=== PATIENT | male | born 1950 | race Caucasian/White ===

== ENCOUNTER → 2017-03-18 | Outpatient (CLI) | payer OTHER ==
--- NOTE | 2017-03-18 12:02 | PCVCIMAG ---
EXAM: BILATERAL CAROTID DUPLEX INDICATION: Carotid Occlusive Disease. FINDINGS: Doppler Measurements (centimeters per second): RIGHT: Peak CCA-89, Peak ECA-89, Diastolic ICA-26, Peak ICA-69, ICA/CCA Ratio-0.8. LEFT: Peak CCA-81, Peak ECA-74, Diastolic ICA-29, Peak ICA-66, ICA/CCA Ratio-0.8. RIGHT CAROTID: The carotid bulb has mild plaque. The proximal internal carotid artery shows <40% stenosis. The common carotid artery shows no significant stenosis. The external carotid artery shows no significant stenosis. LEFT CAROTID: The carotid bulb has mild plaque. The proximal internal carotid artery shows <40% stenosis. The common carotid artery shows no significant stenosis. The external carotid artery shows no significant stenosis. Antegrade flow in both vertebral arteries. IMPRESSION: <40% stenosis of the right internal carotid artery with mild plaque. <40% stenosis of the left internal carotid artery with mild plaque. LOC:[place] [id number]
== END | disposition home or self-care (01) ==
LOC: PCVCIMAG 11:10
PROVIDERS: ATTEND Internal Medicine Cardiovascular Disease
DX: I12.9 Hypertensive chronic kidney disease with stage 1 through stage 4 chronic kidney disease, or unspecified chronic kidney disease (principal); N18.9 Chronic kidney disease, unspecified; I65.23 Occlusion and stenosis of bilateral carotid arteries; R55 Syncope and collapse; E78.00 Pure hypercholesterolemia, unspecified; F41.9 Anxiety disorder, unspecified; Z82.49 Family history of ischemic heart disease and other diseases of the circulatory system; Z87.891 Personal history of nicotine dependence; Z79.899 Other long term (current) drug therapy
CPT/HCPCS: 80061; 93005; 93880; G0463

== ENCOUNTER → 2018-03-22 | Outpatient (CLI) | payer OTHER ==
--- NOTE | 2018-03-22 15:01 | PCVCIMAG ---
APPROVED REPORT Study performed: 03/22/2018 10:13:28 Exam: Stress Echocardiogram Indication: pre-op cardiac evaluation, syncope, HTN Patient Location: Echo lab Stress Nurse: Nicolasa Hobbs RN Status: routine Ht: 5 ft 11 in HR: 106 bpm BP: 146/96 mmHg Rhythm: Tachycardia Procedure The patient underwent an Exercise Stress Test using the Golden Protocol. Blood pressure, heart rate, and EKG were monitored. An Echocardiogram was performed by facility environmental technician in four stages in quad fashion. At peak stress, four selected images were obtained and placed side by side with resting images for comparison. Stress Test Details Stress Test: Exercise stress testing was performed using a Golden protocol. HR Resting HR: 106 bpmMax Heart Rate (APMHR): 155 bpm Max HR Achieved: 151 bpmTarget HR (85% APMHR): 131 bpm % of APMHR: 97 Recovery HR: 117 bpm HR response to stress: Normal HR response to stress BP Resting BP: 146/96 mmHg Max BP: 184/90 mmHg Recovery BP: 144/82 mmHg ECG Resting ECG: Sinus Rhythm, nonspecific ST-T abnormalities, LVH Stress ECG: Sinus Rhythm, nonspecific ST-T abnormalities ST Change: Nondiagnostic resting ST abnormalities Arrhythmia: occasional PVCs Recovery ECG: Sinus Rhythm, nonspecific ST-T abnormalities Recovery ST Change: Nondiagnostic resting ST abnormalities Recovery Arrhythmia: PVCs Clinical Reason for Termination: Maximal effort Stress Symptoms: Dyspnea Exercise duration: 9 min sec Highest Stage Achieved: Stage 3: 3.4 mph at 14% grade. Exercise capacity: 10.1 METs Overall Exercise Capacity for Age: Good Scale: Active Angina Score: None Pre-Stress Echo The resting Echocardiogram showed normal left ventricular contractility with an estimated Ejection Fraction of about >55%. Normal wall motion in all segments on baseline images. Post-Stress Echo The stress Echocardiogram showed normal left ventricular contractility with an estimated Ejection Fraction of about 65%. Normal augmentation of wall motion in all segments on post stress images. Clinical No clinical or ECG evidence for ischemia. Conclusion Clinical Response: Non-ischemic Exercise Capacity: above average Stress ECG Response: Non-ischemic Stress Echo Images: Non-ischemic Mild concentric left ventricular hypertrophy. The left ventricle is normal in size and wall thickness in both the rest and stress images. Other Information Study Quality: Good <Conclusion> Mild concentric left ventricular hypertrophy. The left ventricle is normal in size and wall thickness in both the rest and stress images.
== END | disposition home or self-care (01) ==
LOC: PCVCIMAG 13:01
PROVIDERS: ATTEND Internal Medicine Cardiovascular Disease
DX: I10 Essential (primary) hypertension (principal); R55 Syncope and collapse; Z82.49 Family history of ischemic heart disease and other diseases of the circulatory system
CPT/HCPCS: 93325; 93351